=== PATIENT | male | born 1945 | race Caucasian/White ===

== ENCOUNTER 2019-05-07 12:51 | Inpatient (IN) | payer MEDICARE ==
[~2019-05-07 12:51] MED LIST: Iopamidol-370 76% 500 ML 1 ML ONE
[2019-05-07] MEDS ORDERED: Diltiazem 125 MG/25 ML ONE ×2 (13:09→13:12)
[2019-05-07 14:16] LABS: CKMB 1.7 ng/mL (0-6.6)
[2019-05-07] MEDS ORDERED: Azithromycin 500 MG VIAL ONE (14:40)
--- NOTE | 2019-05-07 14:47 | CT ---
EXAM: CT pulmonary angiogram with IV contrast and 3-D MIP reconstructions PROVIDED CLINICAL HISTORY: None COMPARISON: None FINDINGS: There is no evidence for central or segmental pulmonary embolus. There is vascular calcification incl uding conspicuous coronary calcium. There is a small pericardial effusion. There are a few scattered foci of peribronchial vascular groundglass opacity involving the right uppe r lobe. There is a small right pleural effusion and trace left pleural fluid. No evidence for thoracic lymph node enlargement. The airway appears patent and of normal caliber. The visualized portions of the upper abdomen demonstrate no acute findings. The osseous structures demonstrate no concerning lytic or blastic lesions. IMPRESSION: 1. No evidence for central or segmental pulmonary embolus. 2. Pericardial effusion and small right pleural effusion. Trace left pleural fluid. 3. Vascular calcification including coronary calcium. 4. Patchy somewhat nodular shira-bronchovascular groundglass opacity involving the right upper lobe, l ikely reflecting infectious pneumonitis
[2019-05-07 15:33] LABS: Bilirubin Negative (Negative); Blood, Urine Negative (Negative); Clarity Clear (Clear); Glucose, Urine (Dipstick) Normal (Negative); Leukocyte Negative Leu/uL (Negative); Nitrite Negative (Negative); Protein, Urine (Dipstick) Negative (Neg-Trace); Urobilinogen Normal mg/dL (Less than 2)
--- NOTE | 2019-05-07 16:18 | HP ---
PRIMARY CARE PHYSICIAN: [facility]. His primary care physician is in [place], [place]. REASON FOR ADMISSION: Transferred from [facility] for shortness of breath. HISTORY OF PRESENT ILLNESS: 73-year-old male who has underlying history of congestive heart failure, COPD, hypertension, diabetes type 2, coronary artery disease, who initially presented to [facility] with complaint of increasing shortness of breath and chest pain. The patient has long history of shortness of breath, which happens with exertion, but for last four to five days, he was having increasing shortness of breath even after walking few steps, associated with chest pain which is generalized across the chest associated with coughing episode as well. The patient also has increasing bilateral lower extremity edema. He did not have any recent flu-like illness, but symptoms rapidly gotten worse for last couple of days. At [facility], he was febrile with temperature 100.7 and he was tachycardic and saturating only 91% on room air. His EKG showed atrial fibrillation with RVR and his chest x-ray showed cardiomegaly with pulmonary vascular congestion. Subsequently, the patient had a CT angiography, which showed no evidence of pulmonary embolism, but it showed pericardial effusion and small right pleural effusion as well as peribronchovascular ground-glass opacity on the right upper lobe, which was suspected for pneumonia. His routine blood test showed significantly abnormal troponin as well as lactic acidosis. At [facility], he was given aspirin 325 mg, Lovenox 1 mg/kg, Rocephin 1 g, Lasix 40 mg, ibuprofen 600 mg, Cardizem 5 mg, DuoNeb and subsequently, he was transferred to [facility] for further evaluation and treatment. At [facility], he received azithromycin and he was given some IV fluid as well as a part of sepsis protocol. REVIEW OF SYSTEMS: CONSTITUTIONAL: Negative for weight loss or gain, ability to conduct usual activities. SKIN: Negative for rash, itching. EYES: Negative for double vision, pain. ENT/MOUTH: Negative for nose bleeding, neck stiffness, pain, tenderness. CARDIOVASCULAR: Negative for palpitations, dyspnea on exertion, orthopnea. RESPIRATORY: Negative for shortness of breath, wheezing, cough, hemoptysis, fever or night sweats. GASTROINTESTINAL: Negative for poor appetite, abdominal pain, heartburn, nausea, vomiting, constipation, or diarrhea. GENITOURINARY: Negative for urgency, frequency, dysuria, nocturia. MUSCULOSKELETAL: Negative for pain, swelling. NEUROLOGIC/PSYCHIATRIC: Negative for anxiety, depression. ALLERGY/IMMUNOLOGIC: Negative for skin rash, bleeding tendency. Please see my HPI for pertinent positives and negatives. All other review of systems reviewed and negative except as mentioned in HPI. ALLERGIES: NO KNOWN DRUG ALLERGY. CURRENT HOME MEDICATION: 1. Lasix 60 mg p.o. Thursday, Thursday, Thursday. 2. Pepcid 20 mg daily. 3. Lisinopril 10 mg daily. 4. Hydralazine 25 mg t.i.d. 5. Coreg 6.25 mg twice daily. 6. Metformin 1000 mg twice daily. 7. Lipitor 20 mg daily. 8. Aspirin 81 mg daily. 9. DuoNeb q.6 hourly. 10. Potassium chloride one tablet daily. PAST MEDICAL HISTORY: Diabetes type 2; hypertension; obesity; chronic congestive heart failure, likely systolic; hypertension; chronic kidney disease; COPD. PAST SURGICAL HISTORY: Back surgery 30 years ago. PAST PSYCHIATRIC HISTORY: Reviewed and negative. SOCIAL HISTORY: The patient has passive exposure to smoke. He quit smoking more than 10 years ago. He drinks alcohol occasionally. He denies any other illicit drug abuse. FAMILY HISTORY: No strong family history of premature coronary artery disease, stroke, or cancer. EMERGENCY ROOM COURSE: At [facility], the patient is given aspirin 325 mg, Lovenox 1 mg/kg, Rocephin 1 g, Lasix 40 mg IV, ibuprofen 600 mg and Cardizem bolus as well as DuoNeb therapy and the patient had received some IV fluid as well as azithromycin in our emergency room. FAMILY HISTORY: No strong family history of premature coronary artery disease, stroke, or cancer. PHYSICAL EXAMINATION: Vital signs: On arrival to [facility], blood pressure 125/86, pulse 129, irregular, respiratory rate 24, temperature 100.7, saturation 91% on room air. Weight 108.8 kg. GENERAL: The patient is currently alert, awake, chronically ill, no obvious acute distress. HEENT: Head; normocephalic, atraumatic. Eyes; pupils round, reactive to light. Extraocular muscle intact. ENT, oropharynx within normal limits. Moist mucous membranes. No oral lesion. No pharyngeal erythema. No exudate. NECK: Supple. Elevated JVD noted. No thyromegaly. No carotid bruit. No meningeal signs of irritation. LUNGS: Bilateral scattered rales noted as well as basilar rales noted. Few end-expiratory wheezing bilaterally. No accessory muscles of respiration in use. CARDIAC: S1-S2, irregularly irregular. Unable to elicit murmur. No gallop. No rub. ABDOMEN: Obesity present. Bowel sounds present. Nontender. Nondistended. No organomegaly. No mass. No suprapubic tenderness. BACK: Unremarkable. No CVA tenderness. EXTREMITIES: Upper extremities passive movement of all joints are normal. Lower extremity, bilateral lower extremity pitting edema noted. Good distal pulsation. SKIN: No skin rash. HEMATOLOGICAL: No lymphadenopathy. NEUROLOGIC: Grossly nonfocal examination. SIGNIFICANT LABORATORY DATA: EKG showing atrial fibrillation with RVR, nonspecific ST-T changes. Chest x-ray showing cardiomegaly with pulmonary vascular congestion. CT angiography reported as no evidence of pulmonary embolism, pericardial effusion and small right pleural effusion, vascular calcification, patchy ground-glass opacity in the right upper lobe consistent with pneumonia. CBC: WBC 6.1, hemoglobin 12.8, platelet 205. BMP: Sodium 140, potassium 4.5, chloride 101, carbon dioxide 25, BUN 11, creatinine 1.02, glucose 148, calcium 9.5. LFTs: AST 19, ALT 16, alkaline phosphatase 57, albumin 4.3. BNP 1858. CK-MB 1.7. Troponin 0.421 and then 0.530. Lactic acid 3.4. ASSESSMENT AND PLAN: 1. Acute respiratory failure with hypoxia, likely due to congestive heart failure exacerbation as well as underlying right upper lobe pneumonia. 2. Right upper lobe pneumonia, suspected for streptococcal pneumonia. 3. Hlg-GD-iosglvesq elevation myocardial infarction. The patient also had chest pain and atrial fibrillation with rapid ventricular response and nonspecific ST-T changes with history of coronary artery disease, could be type [address] elevation secondary to demand ischemia. 4. Acute on chronic systolic congestive heart failure exacerbation. 5. Lactic acidosis, likely due to underlying pneumonia. 6. Pericardial effusion and right pleural effusion consistent with congestive heart failure exacerbation, underlying tamponade less likely. 7. Atrial fibrillation with rapid ventricular response. The patient will need long-term anticoagulation, will defer to Cardiology. 8. Diabetes type 2. 9. Hypertension. 10. Dyslipidemia. 11. Coronary artery disease. 12. Morbid obesity. PLAN: 1. Admission to [facility]. 2. Cardiology consultation. 3. Pulmonary consultation. 4. Start empiric antibiotic therapy with Rocephin and azithromycin. 5. We will avoid IV fluid given CHF. We will continue with Lasix 20 mg IV b.i.d. 6. For atrial fibrillation with RVR, we will continue digoxin 125 mcg IV daily, echocardiography will be obtained. 7. Follow up on culture result. 8. DuoNeb therapy q.6 hourly. 9. We will also give him Solu-Medrol 40 mg IV q.8 hourly. 10. Insulin as per sliding scale protocol. Diabetic diet will be given. 11. Deep venous thrombosis prophylaxis SCD boots. Lovenox 40 mg subcu daily. Patient may need long-term anticoagulation therapy. We will defer to Cardiology because the patient has pericardial effusion and we wanted to avoid pericardial tamponade and the patient already received Lovenox 1 mg/kg in other emergency room. DISPOSITION PLAN: Based on clinical course, we are expecting the patient's stay in hospital more than 2 midnights. Plan of care discussed with the patient, other family member at bedside in the emergency room in detail. PROGNOSIS: Guarded. Job ID: [id number]
[2019-05-07 16:49] LABS: Lactic Acid 1.4 mmol/L (0.5-2.2)
[2019-05-07 16:59] LABS: Critical Call Chem Troponin I RESULT DECREASING
[2019-05-07] MEDS ORDERED: Ondansetron ODT 4 MG TAB SL PRN (16:59)
[2019-05-07] MEDS ORDERED: Acetaminophen 325 MG TAB PO PRN ×2 (16:59→17:19)
[2019-05-07] MEDS ORDERED: Ondansetron PF 4 MG/2 ML Vial IVP PRN (16:59)
[2019-05-07] MEDS ORDERED: Diltiazem HCl 125 MG, Admixture Fee 1 EACH in Sodium Chloride 0.9% 100 ML IVPB SCH (17:00)
[2019-05-07] MEDS ORDERED: Dextrose 5% in Water 1,000 ML IV PRN (17:19)
[2019-05-07] MEDS ORDERED: HumaLOG 300 UNITS/3 ML VIAL SC PRN (17:19)
[2019-05-07] MEDS ORDERED: Sodium Chloride 0.65% Nasal 44 ML BOT EA NARE PRN (17:19)
[2019-05-07] MEDS ORDERED: Senokot S 8.6-50 MG TAB PO PRN (17:19)
[2019-05-07] MEDS ORDERED: Nitroglycerin 0.4 MG TAB (25 Tab Bottle) SL PRN (17:19)
[2019-05-07] MEDS ORDERED: Cepastat Lozenges 1 LOZ PO PRN (17:19)
[2019-05-07] MEDS ORDERED: Dextrose 50% Abboject 50 ML SYRINGE SLOW IVP PRN (17:19)
[2019-05-07] MEDS ORDERED: Metoclopramide HCl 10 MG/2 ML VIAL IVP PRN (17:19)
[2019-05-07] MEDS ORDERED: Loperamide HCl 2 MG CAP PO PRN (17:19)
[2019-05-07] MEDS ORDERED: hydrALAZINE 20 MG/ML VIAL SLOW IVP PRN (17:19)
[2019-05-07] MEDS ORDERED: Artificial Tears 18 DROP/0.9 ML EA EYE PRN (17:19)
[2019-05-07] MEDS ORDERED: Calcium Carbonate 500 MG ChewTAB PO PRN (17:19)
[2019-05-07] MEDS ORDERED: Bisacodyl 10 MG SUPP PR PRN (17:19)
[2019-05-07] MEDS ORDERED: Diabetic Tussin 200 MG/10 ML UDCUP PO PRN (17:19)
[2019-05-07] MEDS ORDERED: Loratadine 10 MG TAB PO PRN (17:19)
[2019-05-07 18:28] VITALS: BMI 37.5
[2019-05-07] MEDS: cefTRIAXone\\ROCEPHIN 2 GM in Sodium Chloride 0.9% 100 ML IVPB SCH (19:15)
[2019-05-07] MEDS: Furosemide 20 MG/2 ML VIAL SLOW IVP SCH (19:36)
[2019-05-07] MEDS: Famotidine 20 MG TAB PO SCH (19:36)
[2019-05-07] MEDS: Carvedilol 3.125 MG TAB PO SCH (19:37)
[2019-05-07] MEDS: Atorvastatin Calcium 40 MG TAB PO SCH (19:37)
[2019-05-07] MEDS: methylPREDNISolone Sod Succ 40 MG VIAL IVP SCH (19:37)
[2019-05-07 20:11] LABS: Critical Call Chem Troponin I RESULT DECREASING; Troponin I 0.333 ng/mL (< 0.028)
[2019-05-07] MEDS ORDERED: Prevnar 13-Val Conj/PF 0.5 ML SYRINGE IM ONE (21:00)
[2019-05-07] MEDS ORDERED: FLU VACC TS2019-20(65YR UP)/PF 180 MCG/0.5 ML SYRINGE IM ONE (21:00)
--- NOTE | 2019-05-07 23:53 | CON ---
DATE OF CONSULTATION: INDICATION FOR CONSULTATION: This is a 73-year-old patient who was admitted due to respiratory distress. He has a history of congestive heart failure. He was found to be in atrial fibrillation. I am uncertain, if this is a new finding for this gentleman or not. We were asked to see him due to the abnormal cardiac enzymes, which may be due to the atrial fibrillation. HISTORY OF PRESENT ILLNESS: This very unfortunate 73-year-old gentleman who has not been seen in our hospital before, has been seen in [place] and also in [place]. It is uncertain,if he has changed his story as to whether or not his primary care physician is in [place]. He told me she was in [place]. Recently he has been complaining since last Thursday, he has increasing shortness of breath and coughing due to the fact that he could no longer continue to breathe, he felt like and he presented to the emergency room. He does have a history of congestive heart failure in the past and COPD. He said he stopped smoking over 40 years ago, but does take routine nebulizer treatments. He also has a history of coronary artery disease. It is uncertain exactly what kind of disease he has and what has been done. He is uncertain whether or not he has had any significant stents or bypass surgery performed. He says he has had a cath, but do not have the results of that. He also says he may have had some echocardiograms, but again we do not have the results of any echocardiogram. He has a history of diabetes and has also hypertension. He said he has been unable to do any kind of exertion due to the shortness of breath and he also complained of some chest discomfort, which he attributes to his coughing. He has also had some lower extremity edema, but otherwise this has not been more than his usual. He said he just got worse in the last 10 days essentially. While he originally was seen in the emergency room in [place], he was found to have a temperature of 100.7. He also was noted to be in atrial fibrillation with rapid ventricular response. He was still saturating at 90% at that time. He did undergo a CT angiogram, which did not show any evidence of pulmonary embolism, but the chest x-ray or CT scan showed a pericardial effusion. I do not know exactly how large that was, it is not clear. He also had some pleural effusion as well as some evidence of possible pneumonia. He had an evidence of abnormal troponin, which could be due to his underlying atrial fibrillation. He also had lactic acidosis, but troponin I has not been significantly elevated, but still in the indeterminate range and would be considered as a type 2 [id number] elevation myocardial infarction. Earlier today his troponin I was 0.421, increased up to 0.53 and it is back down to 0.42. In July of 2017, he had a normal troponin I. I do not have any other documentation or results on this patient such as stress testing or echocardiograms or any previous cardiac catheterization or other information that we might obtain and since he is uncertain as to who the physician was that took care of him, he says he has seen a english teacher in the past, but does not remember their names or where he saw them and appears that these were done somewhere in [facility] or perhaps in [place]. His EKG shows atrial fibrillation at this time around 1 o'clock this afternoon. His heart rate was 108 beats per minute. I did not see any ST-segment elevation. He did have some nonspecific ST-segment changes and did have poor R-wave progression in V1 through V3, but no clear indication. The patient has suffered a myocardial infarction in the past. An echocardiogram has been ordered and we will wait to evaluate that to see exactly what his ejection fraction is. He did however have a significant elevation of the BNP at 1858, which certainly is indicative of congestive heart failure, and chest x-ray also shows what appears to be most likely just congestive heart failure, but also some suspected underlying pneumonia. He has been given IV antibiotics and he has been given diuretics to see whether or not we can get some of the fluid off and hopefully he will improve some of his breathing as he does have significant wheezing at this time and does appear to be volume overloaded. REVIEW OF SYSTEMS: Relatively unremarkable, but to me I believe he is not confused, but appears to be fatigued and is not willing to cooperate that much with the explanations except he says he had just been short of breath and had little bit of edema and otherwise he denied any chest pain to me and said he just had not been feeling well. ALLERGIES: NONE. MEDICATIONS: Prior to admission included: 1. Lasix 60 mg 3 times a week. 2. Pepcid 20 mg daily. 3. Lisinopril 10 mg daily. 4. Coreg 6.25 mg b.i.d. 5. Metformin 1000 mg b.i.d. 6. Hydralazine 25 mg t.i.d. 7. Lipitor 20 mg daily. 8. DuoNebs q.6 hours as needed. 9. Aspirin 81 mg daily. 10. Potassium chloride on the days that he takes Lasix. PAST MEDICAL HISTORY: He has a history of COPD, congestive heart failure, hypertension, type 2 diabetes. He has chronic kidney disease according to him and also has COPD. He has had back surgery. SOCIAL HISTORY: He no longer smokes. He told me he stopped smoking about 40 years ago. He told someone else he stopped smoking about 10 years ago. He has occasional alcohol use. He had no other significant illegal drug use. FAMILY HISTORY: Noncontributory for any early heart disease. In the emergency room in [place], he was given IV antibiotics in the form of Rocephin. He was also given 40 mg of IV Lasix. He was given I believe an adult sized aspirin. He was also given Lovenox 1 mg/kg. He was started on diltiazem for the rapid heart rate with the atrial fibrillation. He was also given DuoNeb therapy. PHYSICAL EXAMINATION: GENERAL: Reveals an elderly gentleman, somewhat unkept. He looks a little bit uneasy at this time. He is certainly some short of breath. VITAL SIGNS: He is afebrile. His O2 saturations on 3 L are about 99%. His respiratory rate is about 30 per minute, heart rate is 104 beats per minute, he has atrial fibrillation with irregular heart rate, his blood pressure is about 130/86. HEENT: Reveals the head to be normocephalic and atraumatic. NECK: Carotid pulses are present. I cannot determine whether there is a bruit or not due to the increased airway noise. CHEST: His chest has diffuse rhonchi type sounds, but expiratory wheezing throughout. He is obviously short of breath. CARDIOVASCULAR: Heart rate sounds are somewhat distant, but he has an irregular rhythm. I do not hear any gross murmurs. ABDOMEN: Shows morbid obesity. He has positive bowel sounds. I cannot elicit any tenderness. EXTREMITIES: Showed mild lower extremity edema. Pedal pulses are present. NEUROLOGIC: The patient appears to be intact, but is restless due to his increasing shortness of breath. LABORATORY DATA: His laboratory data showed the BUN of 11 with a creatinine of 1.02 and a sodium was 140, potassium was 4.5, blood sugar was 148. His troponin I as noted above. BNP as noted above. His WBC was 6.1 with a hemoglobin of 12.8, hematocrit 40.5, and a platelet count of 205,000. IMPRESSION: A 73-year-old gentleman with acute respiratory insufficiency, who is improved with respiratory breathing treatments, with nebulizer treatments and also being given IV fluids. I am uncertain to as much he is diuresed or urinated at this time. We will continue to monitor that. He was hypoxic apparently in the beginning, but now the O2 saturations remained stable. I do not see a recent blood gas to determine whether or not he is retaining CO2. We will continue to monitor very carefully. 1. Atrial fibrillation with rapid ventricular response. It is uncertain as to whether or not this is a new finding for this patient, but certainly could be the etiology of worsening of his symptoms. 2. History of congestive heart failure. We will need to obtain echocardiogram, which has already been ordered to determine his ejection fraction. We will try to obtain any records that he has had in the past. If he has had any kind of cardiac catheterization performed this would certainly be of significant benefit in assisting the care of this patient. 3. Diabetes, this will be dealt with by the primary care service. 4. Hypertension. It is really under good control at this time. We will continue his present medications. I would agree also with anticoagulation more than just deep venous thrombosis prophylaxis. I would agree with the Lovenox in this patient to continue to rule out to decrease the risk of embolic phenomenon associated with his atrial fibrillation. We will need to increase the dose. He is only 40 mg once a day. He does have, however, some renal insufficiency, but the creatinine at this time is 1.02, well within normal limits to increase the dose of the Lovenox. Further care of this patient will depend on the results of the echocardiogram. I am suspicious that most likely he does have underlying coronary artery disease and may have severe cardiomyopathy based on his presentation of the congestive heart failure with elevated BNP, which could actually be exacerbated by his atrial fibrillation and chronic obstructive pulmonary disease. Job ID: [id number]
[2019-05-08] MEDS ORDERED: Diltiazem HCl 125 MG, Admixture Fee 1 EACH in Sodium Chloride 0.9% 100 ML IVPB SCH (03:45)
[2019-05-08 03:53] LABS: #Lymphocytes 0.3 thou/uL (1.20-3.40); #Monocytes 0.1 thou/uL (0.11-0.59); #Neutrophils 4.7 thou/uL (1.40-6.50); %Basophils 0.1 % (0.0-1.0); %Eosinophils 0.4 % (0.0-10.0); %Lymphocytes 5.4 % (21.0-51.0); %Monocytes 2.7 % (0.0-10.0); %Neutrophils 91.3 % (42.0-75.0); Hemoglobin 12.3 g/dL (14.0-18.0); Mean Corpuscular HGB CONC 32.2 g/dL (32.0-36.0); Mean Corpuscular Hemoglobin 30.6 pg (27.0-31.0); Mean Corpuscular Volume 94.9 fL (78.0-98.0); Mean Platelet Volume 7.3 fL (7.4-10.4); Platelet Count 170 thou/uL (130-400); RBC Distribution Width 12.6 % (11.5-14.5); Red Blood Cell (RBC) Count 4.01 mill/uL (4.70-6.10); White Blood Cell (WBC) Count 5.2 thou/uL (4.8-10.8)
[2019-05-08 04:13] LABS: Lactic Acid 1.8 mmol/L (0.5-2.2)
[2019-05-08 04:19] LABS: ALT (SGPT) 16 U/L (8-55); AST (SGOT) 26 U/L (5-34); Albumin 4.1 g/dL (3.4-4.8); Alkaline Phosphatase 49 U/L (40-110); Anion Gap 17 mmol/L (10-20); BUN (Urea Nitrogen) 14 mg/dL (8.4-25.7); Bilirubin, Total 0.6 mg/dL (0.2-1.2); Calc. Creatinine Clearance 102 mL/min (70-130); Carbon Dioxide 27 mmol/L (23-31); Cardiac Risk 3.2 (Less than 4.5); Chloride 98 mmol/L (98-107); Cholesterol 97 mg/dl (< 200 Desired); Estimated GFR-MDRD 76; Glucose 198 mg/dL (83-110); HDL Cholesterol 30 mg/dL (>60 Neg Risk); LDL Cholesterol, Calculated 55 mg/dL; Magnesium 1.8 mg/dL (1.6-2.6); Potassium 4.5 mmol/L (3.5-5.1); Protein, Total 7.1 g/dL (5.8-8.1); Sodium 137 mmol/L (136-145); Triglycerides 59 mg/dL (Less than 150)
[2019-05-08] MEDS: HumaLOG 300 UNITS/3 ML VIAL SC PRN ×3 (06:12→17:23)
[2019-05-08] MEDS: methylPREDNISolone Sod Succ 40 MG VIAL IVP SCH ×2 (06:12→13:33)
[2019-05-08] MEDS ORDERED: Diazepam 5 MG TAB PO PRN (06:51)
[2019-05-08] MEDS ORDERED: Diazepam 5 MG TAB PO SCH (07:00)
[2019-05-08] MEDS ORDERED: Saccharomyces boulardii 250 MG CAP PO SCH (09:00)
[2019-05-08] MEDS ORDERED: Enoxaparin Sodium 100 MG/ML SYRINGE SC SCH (09:00)
[2019-05-08] MEDS ORDERED: Aspirin 325 MG TAB PO SCH (09:00)
[2019-05-08] MEDS ORDERED: Enoxaparin Sodium 40 MG/0.4 ML SYRINGE SC SCH (09:00)
[2019-05-08] MEDS ORDERED: Lisinopril 2.5 MG TAB PO SCH (09:00)
[2019-05-08] MEDS ORDERED: Digoxin 0.5 MG/2 ML AMP SLOW IVP SCH (09:00)
[2019-05-08] MEDS: Oseltamivir 75 MG CAP PO SCH ×2 (09:09→20:00)
[2019-05-08] MEDS: Carvedilol 3.125 MG TAB PO SCH ×2 (09:09→20:00)
[2019-05-08] MEDS: Famotidine 20 MG TAB PO SCH ×2 (09:09→20:00)
[2019-05-08 12:42] VITALS: BP 123/81
--- NOTE | 2019-05-08 12:57 | PDOC.HOSPP ---
- Subjective Encounter Date: 05/08/19 Encounter Time: 10:30 Subjective: pt seen and examined, he is somewhat confused this morning, no fever, still short of breath - Objective Vital Signs & Weight: Vital Signs (12 hours) Temp Pulse Pulse Pulse Resp BP BP 05/08/19 12:37 82 85 123/81 05/08/19 11:11 97.6 F 05/08/19 09:09 85 05/08/19 09:08 85 147/89 H 05/08/19 08:00 05/08/19 07:45 99.2 F 05/08/19 05:00 98.2 F 05/08/19 01:35 85 22 H 05/08/19 01:19 98.0 F BP Pulse Ox Pulse Ox 05/08/19 12:37 137/92 H 95 05/08/19 11:11 05/08/19 09:09 05/08/19 09:08 05/08/19 08:00 96 05/08/19 07:45 05/08/19 05:00 05/08/19 01:35 100 05/08/19 01:19 Weight Weight 230 lb Most Recent Monitor Data Heart Rate from ECG 67 NIBP 142/70 NIBP BP-Mean 94 Respiration from ECG 26 SpO2 98 I&O: 05/07/19 05/08/19 05/09/19 06:59 06:59 06:59 Intake Total 480 Output Total 900 Balance -420 Result Diagrams: 05/08/19 03:40 05/08/19 03:39 Additional Labs: Accuchecks 05/08/19 05/08/19 10:37 05:33 POC Glucose 291 H 192 H Radiology Reviewed by me: Yes EKG Reviewed by me: Yes Hospitalist ROS - Review of Systems Constitutional: reports: weakness, malaise. denies: fever, chills, sweats, other Respiratory: reports: cough, shortness of breath, SOB with excertion. denies: dry, hemoptysis, pleuritic pain, sputum, wheezing, other Cardiovascular: reports: edema. denies: chest pain, palpitations, orthopnea, paroxysmal noc. dyspnea, light headedness, other Gastrointestinal: denies: nausea, vomiting, abdominal pain, diarrhea, constipation, melena, hematochezia, other Genitourinary: denies: dysuria, frequency, incontinence, hematuria, retention, other Musculoskeletal: denies: neck pain, shoulder pain, arm pain, back pain, hand pain, leg pain, foot pain, other - Medication Medications: Active Medications Generic Name Dose Route Start Last Admin Trade Name Freq PRN Reason Stop Dose Admin Albuterol/Ipratropium 3 ml 05/07/19 18:30 05/08/19 07:00 Duoneb NEB 3 ml [id number] RADHA Administration Aspirin 325 mg 05/08/19 09:00 05/08/19 09:08 Aspirin PO 325 mg DAILY RADHA Administration Atorvastatin Calcium 40 mg 05/07/19 21:00 05/07/19 19:37 Lipitor PO 40 mg HS RADHA Administration Carvedilol 3.125 mg 05/07/19 21:00 05/08/19 09:09 Coreg PO 3.125 mg BID RADHA Administration Digoxin 0.125 mg 05/08/19 09:00 05/08/19 09:09 Lanoxin SLOW IVP 0.125 mg DAILY RADHA Administration Enoxaparin Sodium 100 mg 05/08/19 09:00 05/08/19 09:26 Lovenox SC 100 mg 0900 RADHA Administration Famotidine 20 mg 05/07/19 21:00 05/08/19 09:09 Pepcid PO 20 mg BID RADHA Administration Furosemide 20 mg 05/08/19 06:00 05/07/19 19:36 Lasix SLOW IVP 20 mg 0600,1400 RADHA Administration Ceftriaxone Sodium 2 gm/ 100 mls @ 200 mls/hr 05/07/19 18:00 05/07/19 19:15 Sodium Chloride IVPB 100 mls 1800 RADHA Administration Diltiazem HCl 125 mg/ 125 mls @ 0 mls/hr 05/08/19 03:45 05/08/19 06:11 Miscellaneous Medication 1 IVPB 125 mls each/ Sodium Chloride INF RADHA Administration Protocol As Directed Insulin Human Lispro 0 units 05/07/19 17:19 05/08/19 11:27 Humalog SC 8 unit .MODERATE SLIDING SC PRN Administration Moderate Correctional Scale Lisinopril 2.5 mg 05/08/19 09:00 05/08/19 09:08 Zestril PO 2.5 mg DAILY RADHA Administration Methylprednisolone Sodium Succinate 40 mg 05/07/19 22:00 05/08/19 06:12 Solu-Medrol IVP 40 mg Q8HR RADHA Administration Oseltamivir Phosphate 75 mg 05/08/19 09:00 05/08/19 09:09 Tamiflu PO 05/12/19 21:01 75 mg BID RADHA Administration Saccharomyces Boulardii 250 mg 05/08/19 09:00 05/08/19 09:09 Florastor PO 250 mg DAILY RADHA Administration - Exam General Appearance: NAD, awake alert Eye: PERRL, anicteric sclera ENT: normocephalic atraumatic, no oropharyngeal lesions Neck: supple, symmetric, no JVD, no thyromegaly Heart: no murmur, no gallops, irregular Respiratory: rales, wheezes Gastrointestinal: soft, non-tender, non-distended, normal bowel sounds Extremities: 1+ LE edema Skin: normal turgor, no lesions Neurological: no focal deficits Musculoskeletal: normal tone, normal strength Psychiatric: normal affect, normal behavior Hosp A/P (1) NSTEMI (non-ST elevated myocardial infarction) Code(s): I21.4 - NON-ST ELEVATION (NSTEMI) MYOCARDIAL INFARCTION Status: Acute (2) Acute respiratory failure with hypoxia Code(s): J96.01 - ACUTE RESPIRATORY FAILURE WITH HYPOXIA Status: Acute (3) Acute on chronic systolic ACC/AHA stage C congestive heart failure Code(s): I50.23 - ACUTE ON CHRONIC SYSTOLIC (CONGESTIVE) HEART FAILURE Status : Acute (4) Influenza A Code(s): J10.1 - FLU DUE TO OTH IDENT INFLUENZA VIRUS W OTH RESP MANIFEST Status: Acute (5) Pericardial effusion Code(s): I31.3 - PERICARDIAL EFFUSION (NONINFLAMMATORY) Status: Acute (6) Atrial fibrillation with RVR Code(s): I48.91 - UNSPECIFIED ATRIAL FIBRILLATION Status: Acute (7) Obesity (BMI 30-39.9) Code(s): E66.9 - OBESITY, UNSPECIFIED Status: Acute (8) CAD (coronary artery disease) Code(s): I25.10 - ATHSCL HEART DISEASE OF [place] CORONARY ARTERY W/O ANG PCTRS Status: Acute (9) Hypertension Code(s): I10 - ESSENTIAL (PRIMARY) HYPERTENSION Status: Chronic (10) Dyslipidemia Code(s): E78.5 - HYPERLIPIDEMIA, UNSPECIFIED Status: Chronic - Plan old records reviewed/req, continue antibiotics, respiratory therapy 05/08/19 cardiology recommendation appreciated echo pending continue lovenox will add tamiflu droplet precaution respiratory therapy continue steroid today medication reviewed, symptomatic treatment continue empiric antibiotics
[2019-05-08] MEDS: Furosemide 20 MG/2 ML VIAL SLOW IVP SCH ×2 (13:33→13:39)
[2019-05-08] MEDS ORDERED: Azithromycin 500 MG in Sodium Chloride 0.9% 250 ML 250 ML IVPB SCH (14:00)
--- NOTE | 2019-05-08 14:21 | CON ---
DATE OF CONSULTATION: 05/08/2019 HISTORY OF PRESENT ILLNESS: Mr. Chaves is a 73-year-old male who has received most of his care in [place]. There is a history that potentially he has had inoperable coronary artery disease identified in the past and that he has chronic congestive heart failure. He also has COPD. He is followed by a pulmonary doctor in [place]. He was transferred here from [place] for further care. Apparently, he has improved somewhat. PAST MEDICAL HISTORY: 1. Remarkable for congestive heart failure. 2. Atrial fibrillation with a rapid response on admission here. 3. Diabetes. 4. Chronic alcohol use. He has been seeing [facility] today. 5. Chronic kidney disease. 6. History of hypertension. 7. History of back surgery. SOCIAL HISTORY: He is currently not smoking, has not 10 years. Drinks alcohol on a daily basis according to family. ALLERGIES: NO RECORDED ALLERGIES. FAMILY HISTORY: Negative for lung disease in early age. REVIEW OF SYSTEMS: Ten point review of systems completed, otherwise negative. Every question I asked him was answered with "ask my daughter." Dr. Angeles met with the daughter and she really did not know much information about his medical health. PHYSICAL EXAMINATION: GENERAL: Mr. Chaves is a 73-year-old male. VITAL SIGNS: Blood pressure 137/92, heart rate is in the 80s, respiratory rates in the teens, oximetry is 95% on 2 L/minute. HEENT: Pupils are equal. Sclerae are anicteric. NECK: Supple. No lymphadenopathy. LUNGS: Remarkable for diffuse wheezes. HEART: Regular rhythm. S1 and S2 are normal. ABDOMEN: Soft and nontender. EXTREMITIES: Without clubbing, cyanosis, or edema. LABORATORY DATA: White count 5.2, hemoglobin 12.3, platelets 170. Electrolytes are normal. Glucose 198. There is no BNP recorded here. TSH was normal. Liver enzymes are normal. Chest x-ray does not show pulmonary edema. CT pulmonary angiogram ruled out thromboembolic disease. IMPRESSION: 1. Chronic obstructive pulmonary disease exacerbation. 2. Underlying coronary artery disease with systolic cardiomyopathy. 3. Pericardial effusion seen on chest CT. On the CT, there is a very faint hazy infiltrate in the right upper lobe, but this is not dense enough to lead to an increased work of breathing. He may have a coexistent mild pneumonia associated with this. We will follow with the other doctors caring for him. TIME SPENT: This is a 70-minute consult, with greater than 50% of the time was spent on the unit coordinating care. Job ID: [id number] [email or web address]
[2019-05-08] MEDS: cefTRIAXone\\ROCEPHIN 2 GM in Sodium Chloride 0.9% 100 ML IVPB SCH (17:15)
[2019-05-08] MEDS: Atorvastatin Calcium 40 MG TAB PO SCH (20:00)
[2019-05-08 20:39] VITALS: TEMP 98
[2019-05-09] MEDS ORDERED: Diazepam 5 MG TAB PO PRN (04:00)
--- NOTE | 2019-05-09 12:47 | DIS ---
DATE OF ADMISSION: 05/07/2019 DATE OF DISCHARGE: 05/08/2019 PRIMARY CARE PHYSICIAN: [facility] Call admission. DISCHARGE DISPOSITION: Home against medical advice. PRIMARY DISCHARGE DIAGNOSES: 1. Acute on chronic systolic congestive heart failure exacerbation. 2. Acute respiratory failure with hypoxia. 3. Atrial fibrillation with rapid ventricular response. 4. Non-ST elevation myocardial infarction. 5. Influenza A. 6. Pericardial effusion. SECONDARY DISCHARGE DIAGNOSES: 1. Hypertension. 2. Dyslipidemia. 3. Obesity with BMI 36. 4. Coronary artery disease. 5. Chronic systolic heart failure. 6. Atrial fibrillation, chronic anticoagulation. PRIMARY PROCEDURE/OPERATION: None. RADIOLOGICAL INVESTIGATION: CT angiography, echocardiography showed EF 20% to 25%. SIGNIFICANT LABORATORY DATA: WBC 5.2, hemoglobin 12.3, platelet 170. Sodium 137, creatinine 0.96. LFT normal. Troponin 0.333. Urinalysis normal. Influenza A positive. DISCHARGE MEDICATIONS: The patient left hospital against medical advice without any prescription. CONTRAINDICATION: None because of the patient discharged against medical advice. CODE STATUS: Full code. INPATIENT CONSULTANTS: Dr. Lennon and Dr. Angeles. TEST RESULTS PENDING ON DISCHARGE: None. ALLERGIES: NO KNOWN DRUG ALLERGIES. DISCHARGE PLAN: Posthospital, the patient will follow up with his primary care physician. HOSPITAL COURSE: A 73-year-old male, who was admitted by me. Please see my HPI for further details. On admission, the patient was in respiratory distress. He required initially BiPAP. He was also hypoxic and he was also having atrial fibrillation with RVR. His troponin was significantly abnormal. The patient was very poor historian. He was not knowing anything about his medical history. We admitted to [facility]. We continued with BiPAP and wean off as tolerated. We consulted Cardiology and Cardiology was planning to do cardiac cath and further evaluation. Echocardiography showed EF 20% to 25%. His rate was under control with Cardizem as well as he was given Lovenox for anticoagulation. He was treated with IV Lasix. The patient also positive for influenza A and the patient was also confused. He was not stable for discharge, but the patient left against medical advice during nighttime whenever I was off work. Unfortunately, when the patient left AMA, I did not have any chance to talk to him, but on-call physician might have been informed, and the patient signed AMA and left hospital. Job ID: [id number]
--- NOTE | 2019-05-10 02:21 | PQF ---
BUCK AGUILERA SALIM NOORJIBHAI MD [id number] CLINICAL DOCUMENTATION CLARIFICATION FORM: POST DISCHARGE Addendum to original discharge summary date: ____ Late entry note date: __ DATE: 05/10/2019 ATTN: Tracie Marshall Please exercise your independent, professional judgment in responding to the clarification form. Clinical indicators are provided on the bottom of this form for your review Please check appropriate box(s) to clarify if the following diagnosis has been ruled in or ruled out: Sepsis [ x ] Ruled in diagnosis [ x ] Continue to treat [ ] Resolved [ ] Ruled out diagnosis [ ] Cannot rule out diagnosis [ ] Other diagnosis [ ] Unable to determine In addition, please specify: Present on Admission (POA): [ x ] Yes [ ] No [ ] Unable to determine For continuity of documentation, please document condition throughout progress notes and discharge summary. Thank You. CLINICAL INDICATORS - SIGNS / SYMPTOMS / LABS ED notes p2 05/07 SIRS scoring: Yes, patient meet Criteria H&P p1 05/07 Dr Jones The pt has long history of SOB, which happens with exertion but four t five days, he was having increasing SOB H&P p1 05/07 Dr Jones At [facility], he was febrile with temperature 100.7 and he was tachycardic and saturing only 81% on room air H&P p1 05/07 Dr Jones suspected with Pneumonia H&P p1 05/07 Dr Jones At [facility], he received azithromycin and he was given some IV fluid as well as a part of sepsis protocol [employer] ED notes p10 05/07 Sepsis H&P p7 05/07 - Acute Respiratory Failure with hypoxia H&P p7 05/07 - Right upper lobe pneumonia, suspected for streptococcal pnumonia H&P p7 05/07 - Lactic Acidosis TREATMENTS JUN 18 - IV Ceftriazone JUN 18 Tamiflu H&P p7 05/07 - Admitted to [facility] Pulmonology consult 05/08 Manohar Andrea (This form is maintained as a part of the permanent medical record) 2014 [employer]. All Rights Reserved [email or web address] [not provided] [email or web address]
== END 2019-05-08 21:20 | disposition left against medical advice (07) | DRG 871 ==
LOC: ERS 12:51 → IMCU/EMU 15:14
PROVIDERS: ADMIT Internal Medicine; ATTEND Internal Medicine
PROC: 5A09357 Assistance with Respiratory Ventilation, Less than 24 Consecutive Hours, Continuous Positive Airway Pressure (ICD-10-PCS; principal; 2019-05-07)
DX: A41.9 Sepsis, unspecified organism (principal); I50.23 Acute on chronic systolic (congestive) heart failure; I21.4 Non-ST elevation (NSTEMI) myocardial infarction; J96.01 Acute respiratory failure with hypoxia; J10.00 Influenza due to other identified influenza virus with unspecified type of pneumonia; I13.0 Hypertensive heart and chronic kidney disease with heart failure and stage 1 through stage 4 chronic kidney disease, or unspecified chronic kidney disease; E87.2 Acidosis; I31.3 Pericardial effusion (noninflammatory); J44.0 Chronic obstructive pulmonary disease with (acute) lower respiratory infection; I25.10 Atherosclerotic heart disease of native coronary artery without angina pectoris; N18.9 Chronic kidney disease, unspecified; E66.01 Morbid (severe) obesity due to excess calories; Z28.82 Immunization not carried out because of caregiver refusal; Z87.891 Personal history of nicotine dependence; Z79.899 Other long term (current) drug therapy; Z79.82 Long term (current) use of aspirin
CPT/HCPCS: 36415; 36416; 71275; 80053; 80061; 81003; 82553; 83605; 83735; 84443; 84550; 85025; 87086; 87804; 93005; 93306; 93798; 94640; J0456; J0696; J1160; J1650; J1940; J2920; J3490; J7050; J7620; Q9967